=== PATIENT | male | born 1945 | race Caucasian/White ===

== ENCOUNTER 2021-12-17 13:06 | Inpatient (IN) ==
[2021-12-17] MEDS ORDERED: Ondansetron 4 MG/2 ML VIAL IVP PRN (16:06)
[2021-12-17] MEDS ORDERED: Acetaminophen 325 MG TABLET PO PRN (16:06)
[2021-12-17] MEDS ORDERED: Naloxone 0.4 MG/ML INJ IVP PRN (16:06)
[2021-12-17] MEDS ORDERED: ALPRAZolam 0.25 MG TABLET PO PRN (16:32)
[2021-12-17] MEDS ORDERED: NON-FORMULARY MEDICATION 1 EACH EACH (Atorvastatin Calcium [Lipitor] 80 MG Tablet) PO SCH (18:00)
[2021-12-17] MEDS: ALPRAZolam 0.25 MG TABLET PO PRN (21:30)
[2021-12-17] MEDS: lisinopriL 20 MG TABLET PO SCH (21:30)
[2021-12-18] MEDS: *HR* Enoxaparin 40 MG/0.4 ML SYRINGE SQ SCH (06:11)
[2021-12-18] MEDS ORDERED: Regadenoson 0.4 MG/5 ML SYRINGE IVP ONE (07:10)
[2021-12-18 08:36] LABS: Mean Corpuscular Volume 87.5 fL (83.0-100.0)
[2021-12-18 08:38] LABS: Basophils % 0.2 %; Eosinophils # 0.1 K/mcL (0.0-0.6); Hematocrit 39.2 % (37.5-50.1); Hemoglobin 13.4 g/dL (12.9-16.9); Immature Granulocytes % 0.4 % (0-4); Immature Platelets 4.9 % (1.1-6.1); Lymphocytes # 1.8 K/mcL (0.6-4.6); Lymphocytes % 18.5 %; Mean Corpuscular HGB Conc 34.2 g/dL (31.6-35.5); Mean Corpuscular Hemoglobin 29.9 pg (28.0-33.3); Mean Platelet Volume 10.2 fL (9.4-12.4); Monocytes # 1.1 K/mcL (0.0-1.3); Monocytes % 10.8 %; Neutrophils # 6.7 K/mcL (1.6-8.9); Platelet Count 131 K/mcL (140-400); Red Blood Count 4.48 M/mcL (4.19-5.50); Segmented Neutrophils % 69.1 %
[2021-12-18 08:40] LABS: White Blood Count 9.7 K/mcL (4.3-11.1)
[2021-12-18 08:55] LABS: Chol/HDL Ratio 2.1 (0-4.9)
[2021-12-18 08:58] LABS: Calcium 8.7 mg/dL (8.6-10.3); Potassium 3.7 mEq/L (3.5-5.1)
[2021-12-18 09:09] LABS: Estimated Average Glucose 108 mg/dl; Hemoglobin A1C 5.4 %
[2021-12-18] MEDS: Aspirin 81 MG TAB.CHEW PO SCH (12:29)
[2021-12-18] MEDS: Finasteride 5 MG TABLET PO SCH (12:29)
[2021-12-18] MEDS: lisinopriL 20 MG TABLET PO SCH (20:43)
[2021-12-18] MEDS: ALPRAZolam 0.25 MG TABLET PO PRN (20:47)
[2021-12-19] MEDS: *HR* Enoxaparin 40 MG/0.4 ML SYRINGE SQ SCH (05:49)
[2021-12-19] MEDS: Finasteride 5 MG TABLET PO SCH (07:56)
[2021-12-19] MEDS: Aspirin 81 MG TAB.CHEW PO SCH (07:56)
[2021-12-19] MEDS ORDERED: hydroCHLOROthiazide 25 MG TABLET PO SCH (09:00)
[2021-12-19 09:06] LABS: Hemoglobin 13.2 g/dL (12.9-16.9); Immature Granulocytes % 0.3 % (0-4); Mean Corpuscular Volume 88.4 fL (83.0-100.0)
[2021-12-19 09:08] LABS: Basophils % 0.4 %; Eosinophils # 0.1 K/mcL (0.0-0.6); Eosinophils % 1.7 %; Hematocrit 38.9 % (37.5-50.1); Immature Platelets 4.7 % (1.1-6.1); Lymphocytes # 1.4 K/mcL (0.6-4.6); Lymphocytes % 20.4 %; Mean Corpuscular HGB Conc 33.9 g/dL (31.6-35.5); Mean Platelet Volume 10.3 fL (9.4-12.4); Monocytes # 0.8 K/mcL (0.0-1.3); Monocytes % 11.6 %; Neutrophils # 4.6 K/mcL (1.6-8.9); Platelet Count 130 K/mcL (140-400); Segmented Neutrophils % 65.6 %
[2021-12-19] MEDS ORDERED: carvediloL 6.25 MG TABLET PO SCH (10:40)
[2021-12-19 11:18] LABS: BUN/Creatinine Ratio 14 (6-26); Blood Urea Nitrogen 11 mg/dL (8-23); Calcium 8.4 mg/dL (8.6-10.3); Carbon Dioxide 25 mEq/L (23-29); Chloride 109 mEq/L (98-107); Glucose 100 mg/dL (70-105); Osmolality,Calculated 287 (280-300); Phosphorous 1.7 mg/dL (2.7-4.5); Potassium 3.7 mEq/L (3.5-5.1); Sodium 139 mEq/L (136-145)
[2021-12-19 14:17] VITALS: BP 125/69; PULSE 76; TEMP 97.8; O2SAT 97
== END 2021-12-19 14:58 | disposition home or self-care (01) | DRG 313 ==
LOC: 3BNU
PROVIDERS: ADMIT Internal Medicine; ATTEND Internal Medicine